=== PATIENT | male | born 1995 | race Two or more races ===

== ENCOUNTER 2017-12-11 22:05 | Emergency (ER) | payer SELFPAY ==
[2017-12-11 22:16] VITALS: BP 141/70; RESP 16; TEMP 98.1
--- NOTE | 2017-12-11 22:37 | ED PDOC ---
HPI: Psych/Substance Abuse Time Seen by Provider: 12/11/17 22:19 Chief Complaint (Nursing): Alcohol Ingestion Chief Complaint (Provider): Alcohol Ingestion History Per: Patient History/Exam Limitations: intoxication Onset/Duration Of Symptoms: Hrs Current Symptoms Are (Timing): Still Present Modifying Factor(s): Alcohol Involuntary Hold By: None Additional Complaint(s): 22 y/o male brought in by EMS after he was found on bench. Patient admits to ETOH ingestion. No trauma or falls. Unknown PMHx. On arrival patient appears sleepy but arousable. PMD: None Past Medical History Reviewed: Historical Data, Nursing Documentation, Vital Signs, Unable To Obtain Vital Signs: Last Vital Signs Temp 98.1 F 12/11/17 22:13 Pulse 110 H 12/11/17 22:13 Resp 16 12/11/17 22:13 BP 141/70 12/11/17 22:13 Pulse Ox 100 12/11/17 22:13 - Family History Family History: States: No Known Family Hx - Allergies Allergies/Adverse Reactions: Allergies Allergy/AdvReac Type Severity Reaction Status Date / Time No Known Allergies Allergy Verified 12/11/17 22:17 Review of Systems Review Of Systems: ROS cannot be obtained secondary to pt's inabilty to answer questions. Psych: Positive for: Other (ETOH ingestion) Physical Exam - Reviewed Nursing Documentation Reviewed: Yes Vital Signs Reviewed: Yes - Physical Exam Appears: Positive for: Non-toxic, No Acute Distress Head Exam: Positive for: ATRAUMATIC, NORMOCEPHALIC Skin: Positive for: Normal Color, Warm, Dry Eye Exam: Positive for: Normal appearance Neck: Positive for: Normal, Supple Cardiovascular/Chest: Positive for: Regular Rate, Rhythm. Negative for: Murmur Respiratory: Positive for: Normal Breath Sounds. Negative for: Respiratory Distress Extremity: Positive for: Normal ROM. Negative for: Calf Tenderness, Swelling Neurologic/Psych: Positive for: Other (Drowsy but arousable). Negative for: Motor/Sensory Deficits - ECG O2 Sat by Pulse Oximetry: 100 (RA) Pulse Ox Interpretation: Normal - Progress Re-evaluation Time: 22:50 Condition: Re-examined (Awake and alert no focal neuro deficits. Parents here and will be dischrged to them) Medical Decision Making Medical Decision Making: Time: 22:23 Initial Impression: ETOH ingestion Initial Plan: * Accucheck * Alcohol serum Will observe in the ED and monitor for clinical sobriety. Scribe Attestation: Documented by Ebony Mcnally, acting as a scribe for Dr. Collin Tovar MD. Provider Scribe Attestation: All medical record entries made by the Scribe were at my direction and personally dictated by me. I have reviewed the chart and agree that the record accurately reflects my personal performance of the history, physical exam, medical decision making, and the department course for this patient. I have also personally directed, reviewed, and agree with the discharge instructions and disposition. Disposition - Clinical Impression Clinical Impression: Alcohol abuse - Patient ED Disposition Is Patient to be Admitted: No - Disposition Disposition: Routine/Home Disposition Time: 22:50 Condition: FAIR Instructions: Alcohol Abuse and Alcoholism (DC) Forms: [facility] ([place])
[2017-12-11 23:23] VITALS: PULSE 90; O2SAT 99
== END 2017-12-11 22:55 | disposition home or self-care (01) ==
LOC: H.ER 22:05
DX: F10.10 Alcohol abuse, uncomplicated (principal)